=== PATIENT | female | born 1990 | race Caucasian/White ===

== ENCOUNTER 2016-07-22 08:26 | Inpatient (IN) | payer BC ==
[2016-07-22] VITALS (8 sets, daily range): BP systolic 116–143; BP diastolic 66–78
[~2016-07-22] VITALS: Ht 175.3 cm; Wt 86.2 kg
[~2016-07-22 08:26] MED LIST: CEFOXITIN 2GM IVPB FOR OMNI 100 ML IV PRN; FENTANYL PF 100 MCG/2 ML VIAL. IV PRN; HYDR-2666 PO; IV RINGERS,LACTATED 1000ML 1,000 ML IV SCH; LIDOCAINE 1% 1 ML SYRINGE. ID PRN; MORPHINE SULFATE 2 MG/ML DISP.SYRIN. IV PRN; ONDANSETRON PF 4 MG/2 ML VIAL. IV PRN; PREN1TAB58 PO; PROM6.25 PO
[2016-07-22 09:20] LABS: BASO # 0.1 x10^3/uL (0.0-0.2); BASO % 1 % (0-3); EOS % 3 % (0-3); HEMATOCRIT 39.2 % (36.0-47.0); HEMOGLOBIN 13.1 g/dL (12.0-15.5); LYMPH # 2.8 x10^3/uL (1.0-4.8); LYMPH % 31 % (24-48); MEAN CORPUSCULAR HEMOGLOBIN 29 pg (25-35); MEAN CORPUSCULAR HGB CONC 33 g/dL (31-37); MEAN CORPUSCULAR VOLUME 88 fL (79-100); MONO % 7 % (0-9); NEUT % 59 % (31-73); PLATELET COUNT 243 x10^3/uL (140-400); RED BLOOD COUNT 4.45 x10^6/uL (3.50-5.40); WHITE BLOOD COUNT 9.1 x10^3/uL (4.0-11.0)
[2016-07-22 09:23] LABS: CREATININE 0.9 mg/dL (0.6-1.0); GFR 74.6; POTASSIUM 3.6 mmol/L (3.5-5.1)
--- NOTE | 2016-07-22 10:16 | PDOC ---
SURGICAL PROGRESS NOTE Subjective 26 yo F with severe gastroparesis TO OR for total gastrectomy R/B/A /d pt and pt's family Vital Signs Vital Signs Date Time Temp Pulse Resp B/P Pulse Ox O2 Delivery O2 Flow Rate FiO2 07/22/16 08:51 98.8 72 18 114/66 99 Room Air 98.8 Labs Laboratory Tests Test 07/22/16 09:05 White Blood Count 9.1x10^3/uL (4.0-11.0) Red Blood Count 4.45x10^6/uL (3.50-5.40) Hemoglobin 13.1g/dL (12.0-15.5) Hematocrit 39.2% (36.0-47.0) Mean Corpuscular Volume 88fL (79-100) Mean Corpuscular Hemoglobin 29pg (25-35) Mean Corpuscular Hemoglobin Concent 33g/dL (31-37) Red Cell Distribution Width 13.0% (11.5-14.5) Platelet Count 243x10^3/uL (140-400) Neutrophils (%) (Auto) 59% (31-73) Lymphocytes (%) (Auto) 31% (24-48) Monocytes (%) (Auto) 7% (0-9) Eosinophils (%) (Auto) 3% (0-3) Basophils (%) (Auto) 1% (0-3) Neutrophils # (Auto) 5.3x10^3uL (1.8-7.7) Lymphocytes # (Auto) 2.8x10^3/uL (1.0-4.8) Monocytes # (Auto) 0.6x10^3/uL (0.0-1.1) Eosinophils # (Auto) 0.3x10^3/uL (0.0-0.7) Basophils # (Auto) 0.1x10^3/uL (0.0-0.2) Sodium Level 144mmol/L (136-145) Potassium Level 3.6mmol/L (3.5-5.1) Chloride Level 108mmol/L (98-107) Carbon Dioxide Level 25mmol/L (21-32) Anion Gap 11 (6-14) Blood Urea Nitrogen 10mg/dL (7-20) Creatinine 0.9mg/dL (0.6-1.0) Estimated GFR (Cockcroft-Gault) 74.6 Glucose Level 86mg/dL (70-99) Calcium Level 9.0mg/dL (8.5-10.1) Laboratory Tests Test 07/22/16 09:05 White Blood Count 9.1x10^3/uL (4.0-11.0) Red Blood Count 4.45x10^6/uL (3.50-5.40) Hemoglobin 13.1g/dL (12.0-15.5) Hematocrit 39.2% (36.0-47.0) Mean Corpuscular Volume 88fL (79-100) Mean Corpuscular Hemoglobin 29pg (25-35) Mean Corpuscular Hemoglobin Concent 33g/dL (31-37) Red Cell Distribution Width 13.0% (11.5-14.5) Platelet Count 243x10^3/uL (140-400) Neutrophils (%) (Auto) 59% (31-73) Lymphocytes (%) (Auto) 31% (24-48) Monocytes (%) (Auto) 7% (0-9) Eosinophils (%) (Auto) 3% (0-3) Basophils (%) (Auto) 1% (0-3) Neutrophils # (Auto) 5.3x10^3uL (1.8-7.7) Lymphocytes # (Auto) 2.8x10^3/uL (1.0-4.8) Monocytes # (Auto) 0.6x10^3/uL (0.0-1.1) Eosinophils # (Auto) 0.3x10^3/uL (0.0-0.7) Basophils # (Auto) 0.1x10^3/uL (0.0-0.2) Sodium Level 144mmol/L (136-145) Potassium Level 3.6mmol/L (3.5-5.1) Chloride Level 108mmol/L (98-107) Carbon Dioxide Level 25mmol/L (21-32) Anion Gap 11 (6-14) Blood Urea Nitrogen 10mg/dL (7-20) Creatinine 0.9mg/dL (0.6-1.0) Estimated GFR (Cockcroft-Gault) 74.6 Glucose Level 86mg/dL (70-99) Calcium Level 9.0mg/dL (8.5-10.1) GAIL BURT MD Jul 22, 2016 10:16
[2016-07-22 10:29] LABS: NEG OBC UR NEG; POS OBC UR POS
[2016-07-22] MEDS ORDERED: ROCURONIUM 50 MG/5 ML VIAL. ONE ×2 (10:49→12:41)
[2016-07-22] MEDS ORDERED: SUCCINYLCHOLINE 200 MG/10 ML VIAL. ONE (10:49)
[2016-07-22] MEDS ORDERED: FENTANYL PF 100 MCG/2 ML VIAL. ONE ×2 (10:49→14:02)
[2016-07-22] MEDS ORDERED: MIDAZOLAM HCL 2 MG/2 ML VIAL. ONE (10:49)
[2016-07-22] MEDS ORDERED: FAMOTIDINE 20 MG/2 ML VIAL ONE (10:50)
[2016-07-22] MEDS ORDERED: ONDANSETRON PF 4 MG/2 ML VIAL. ONE (10:50)
[2016-07-22] MEDS ORDERED: LIDOCAINE 2% 100 MG/5 ML DISP.SYRIN. ONE (10:50)
[2016-07-22] MEDS ORDERED: DEXAMETHASONE SOD PHOS 20 MG/5 ML VIAL. ONE (10:50)
[2016-07-22] MEDS ORDERED: PROPOFOL 20 ML IV ONE ×2 (10:50→13:24)
[2016-07-22] MEDS ORDERED: MORPHINE SULFATE 10 MG/ML VIAL. ONE (11:26)
[2016-07-22] MEDS ORDERED: SEVOFLURANE > 120 MINUTES. IH ONE (12:42)
[2016-07-22] MEDS ORDERED: GLYCOPYRROLATE 1 MG/5 ML VIAL. ONE (13:14)
[2016-07-22] MEDS ORDERED: NEOSTIGMINE METHYLSULFATE 5 MG/5 ML SYRINGE. ONE (13:14)
[2016-07-22] MEDS: IV NORMAL SALINE 1000ML BAG 1,000 ML IV SCH (14:02)
--- NOTE | 2016-07-22 14:13 | PDOC ---
BRIEF OPERATIVE NOTE Pre-Op Diagnosis gastroparesis Post-Op Diagnosis same Procedure Performed total gastrectomy Surgeon Mohit Alonso Anesthesia Type: General Blood Loss 100 IV Fluid 1600 Specimens Obtained stomach Findings large stomach Complications none Additional Remarks [id number] GAIL BURT MD Jul 22, 2016 14:13
[2016-07-22] MEDS ORDERED: 0.9 % SODIUM CHLORIDE 10 ML DISP.SYRIN. IV PRN (14:15)
[2016-07-22] MEDS ORDERED: NALOXONE 0.4 MG/ML VIAL. IV PRN (14:15)
[2016-07-22] MEDS: PROCHLORPERAZINE 10 MG/2 ML VIAL. IV PRN ×2 (14:20→15:00)
[2016-07-22] MEDS: HYDROMORPHONE 2 MG/ML VIAL. IV PRN ×4 (14:21→15:48)
[2016-07-22] MEDS: HYDROMORPHONE STANDARD PCA 30 ML IV PRN (14:35)
[2016-07-22] MEDS: IV RINGERS,LACTATED 1000ML 1,000 ML IV SCH (14:36)
[2016-07-22] MEDS: FENTANYL PF 100 MCG/2 ML VIAL. IV PRN ×2 (14:42→15:24)
[2016-07-22] MEDS ORDERED: ACETAMINOPHEN INTRAVENOUS 100 ML IV ONE (15:15)
--- NOTE | 2016-07-22 15:49 | RAD ---
Portable abdomen, 07/22/2016: History: Postop gastrectomy An NG tube extends into the body of the stomach. Tubing overlying the mid abdomen is presumably a surgical drain. Surgical sutures and clips overlie the mid and upper abdomen. The lower pelvis was not completely included on this exam. There is no evidence of a retained surgical instrument, needle or radiopaque sponge on this image.
--- NOTE | 2016-07-22 17:00 | OP ---
DATE OF SURGERY: 07/22/2016 REFERRING PHYSICIANS: Dr. Deana Jose. Thank you for the consult. PREOPERATIVE DIAGNOSIS: Severe gastroparesis. POSTOPERATIVE DIAGNOSIS: Severe gastroparesis. PROCEDURE: Total gastrectomy with Yoni-en-Y reconstruction, removal of previous gastrostomy tube, lysis of adhesions, incisional hernia repair. SURGEON: Raj Rueda M.D. FASHION PHOTOGRAPHER: Boy Alonso M.D. ESTIMATED BLOOD LOSS: 100 mL. FLUIDS: 1600 mL. COMPLICATIONS: None. FINDINGS: Very large stomach. INDICATIONS: A 26-year-old female who has had previous history of gastroparesis as well as a total colectomy for colonic atony and she has been on gastrostomy tube and jejunostomy tube. She has tolerated J tube feedings well, but is not able to take any p.o. intake. Subsequently, it was felt patient best be served by a total gastrectomy with Yoni-en-Y reconstruction. The patient and patient's family were informed of the risks, benefits, alternatives of procedure, risks including but not limited to bleeding, infection, damage to surrounding structures, risk of anesthesia, risk of anastomotic leak, risk of anesthesia, certainly the possibility that this will not improve her symptoms. The patient and patient's family appeared to understand and their insightful questions were answered and they agreed to proceed. DESCRIPTION OF PROCEDURE: After obtaining informed consent, the patient was taken to the operating room, induced under general endotracheal anesthetic. The patient was prepped and draped in usual fashion of the anterior abdominal wall, upper midline incision was reopened using electrocautery. Subcutaneous tissue was divided using electrocautery. There were several small hernias in the fascial area here. These were reopened and closed at the end of the procedure for repair. The abdominal cavity was explored. The stomach was noted to be very enlarged. 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 Her jejunostomy tube is in the proximal small intestine in the right upper quadrant and was maintained in place remaining small bowel had some adhesions in place. These were taken down using sharp dissection without injuring the underlying bowel. The small bowel was followed down to the previous ileocolic anastomosis, which appeared to be intact and patent and looked good. The duodenum was divided just proximal to the pylorus using a contour stapler. The duodenal stump was oversewn using continuous 3-0 Vicryl stitch. The stomach and omentum were then taken off the retrogastric structures using electrocautery dissection without injuring the underlying pancreas, short gastric vessels were taken using Impact LigaSure. This dissection continued well up near the GE junction. The left gastric artery was maintained and the stomach was divided just distal to this leaving a small rim of stomach for the anastomosis. The gastrostomy tube was also removed and discarded. The stomach was sent to pathology for evaluation. A Yoni-en-Y was created using general MADELEINE stapler. The proximal end of the distal portion of the jejunum was brought up to the stomach and gastrojejunostomy was created using an outside layer multiple interrupted 3-0 Vicryl stitches in an end-to-side layer, continuous 3-0 PDS. The NG tube was placed across this. Air was blown across the anastomosis without evidence of any air leak or air bubbles. The anastomosis was noted to be patent and no tension, completely viable without evidence for leakage. The jejunojejunostomy was then created distally using gentle load MADELEINE stapler. The end of this was sealed off using a 3-0 PDS in continuous fashion and 3-0 Vicryl. This anastomosis noted to be patent under no tension, completely viable. The crotch of this anastomosis was reinforced using 3-0 Vicryl stitches. Mesentery defect was reapproximated using 3-0 chromic. The abdominal cavity was copiously irrigated with normal saline solution. There was no evidence of bleeding or other pathology at the time of closure. The VIN drain was brought in through the left upper quadrant and placed near the gastrojejunostomy. The previous gastrostomy site was excised using electrocautery. This appeared to have significant dimpling effect and was loosely reapproximated using 3-0 nylon in two interrupted vertical mattress stitches. The fascia was reapproximated in midline using 2 looped 0 PDS stitches in continuous fashion and a Greg drain was placed in the subcutaneous tissues. Subcutaneous tissues reapproximated with 3-0 Vicryl. Skin incisions were approximated with 4-0 Monocryl in subcuticular fashion and a Greg drain was secured in place using a 3-0 nylon stitch. The patient tolerated the procedure well and was discharged to recovery room in stable condition. All counts correct. There were no immediate complications. RAJ RUEDA MD DR: BRADLEY/beto JOB#: [id number] / [id number] DEANA Moreno MD
[2016-07-23] MEDS: IV RINGERS,LACTATED 1000ML 1,000 ML IV SCH ×3 (00:17→16:09)
[2016-07-23] MEDS: HYDROMORPHONE STANDARD PCA 30 ML IV PRN ×2 (02:32→16:18)
[2016-07-23 03:10] VITALS: BP 118/74
[2016-07-23 05:44] LABS: BASO % 0 % (0-3); EOS % 2 % (0-3); HEMATOCRIT 37.4 % (36.0-47.0); HEMOGLOBIN 12.3 g/dL (12.0-15.5); LYMPH % 6 % (24-48); MEAN CORPUSCULAR HEMOGLOBIN 29 pg (25-35); MEAN CORPUSCULAR HGB CONC 33 g/dL (31-37); MEAN CORPUSCULAR VOLUME 89 fL (79-100); MONO % 6 % (0-9); NEUT % 86 % (31-73); PLATELET COUNT 217 x10^3/uL (140-400); RED CELL DISTRIBUTION WIDTH 13.3 % (11.5-14.5); WHITE BLOOD COUNT 15.9 x10^3/uL (4.0-11.0)
[2016-07-23 07:00] VITALS: BP 105/56
[2016-07-23 08:11] LABS: % EOS 4 % (0-5)
[2016-07-23 08:14] LABS: PLT ESTIMATE ADEQUATE (ADEQUATE)
[2016-07-23] MEDS: ONDANSETRON PF 4 MG/2 ML VIAL. IV PRN ×3 (09:24→21:26)
[2016-07-23] MEDS: ENOXAPARIN 40 MG/0.4 ML DISP.SYRIN. SQ SCH (09:25)
[2016-07-23 11:00] VITALS: BP 106/48
--- NOTE | 2016-07-23 12:45 | PDOC ---
SURGICAL PROGRESS NOTE Subjective Pt with better pain control, somewhat "quesy" Vital Signs Vital Signs Date Time Temp Pulse Resp B/P Pulse Ox O2 Delivery O2 Flow Rate FiO2 07/23/16 11:00 97.3 71 16 106/48 96 Nasal Cannula 2.0 97.3 I&O Intake and Output 07/23/16 07:00 Intake Total 3231.5 ml Output Total 1200 ml Balance 2031.5 ml Intake Oral 0 ml IV Total 3231.5 ml Output Urine Total 880 ml Drainage Total 220 ml Estimated Blood Loss 100 ml # Voids 1 PATIENT HAS A WATSON: Yes General: Alert, Oriented X3, Cooperative, No acute distress Abdomen: Soft, Other (dressing c/d/i, VIN serosang) Labs Laboratory Tests Test 07/22/16 07:00 07/22/16 09:05 07/23/16 04:51 Urine Test Negative (NEG) White Blood Count 9.1x10^3/uL (4.0-11.0) 15.9x10^3/uL (4.0-11.0) Red Blood Count 4.45x10^6/uL (3.50-5.40) 4.20x10^6/uL (3.50-5.40) Hemoglobin 13.1g/dL (12.0-15.5) 12.3g/dL (12.0-15.5) Hematocrit 39.2% (36.0-47.0) 37.4% (36.0-47.0) Mean Corpuscular Volume 88fL (79-100) 89fL (79-100) Mean Corpuscular Hemoglobin 29pg (25-35) 29pg (25-35) Mean Corpuscular Hemoglobin Concent 33g/dL (31-37) 33g/dL (31-37) Red Cell Distribution Width 13.0% (11.5-14.5) 13.3% (11.5-14.5) Platelet Count 243x10^3/uL (140-400) 217x10^3/uL (140-400) Neutrophils (%) (Auto) 59% (31-73) 86% (31-73) Lymphocytes (%) (Auto) 31% (24-48) 6% (24-48) Monocytes (%) (Auto) 7% (0-9) 6% (0-9) Eosinophils (%) (Auto) 3% (0-3) 2% (0-3) Basophils (%) (Auto) 1% (0-3) 0% (0-3) Neutrophils # (Auto) 5.3x10^3uL (1.8-7.7) 13.6x10^3uL (1.8-7.7) Lymphocytes # (Auto) 2.8x10^3/uL (1.0-4.8) 1.0x10^3/uL (1.0-4.8) Monocytes # (Auto) 0.6x10^3/uL (0.0-1.1) 1.0x10^3/uL (0.0-1.1) Eosinophils # (Auto) 0.3x10^3/uL (0.0-0.7) 0.3x10^3/uL (0.0-0.7) Basophils # (Auto) 0.1x10^3/uL (0.0-0.2) 0.0x10^3/uL (0.0-0.2) Sodium Level 144mmol/L (136-145) Potassium Level 3.6mmol/L (3.5-5.1) Chloride Level 108mmol/L (98-107) Carbon Dioxide Level 25mmol/L (21-32) Anion Gap 11 (6-14) Blood Urea Nitrogen 10mg/dL (7-20) Creatinine 0.9mg/dL (0.6-1.0) Estimated GFR (Cockcroft-Gault) 74.6 Glucose Level 86mg/dL (70-99) Calcium Level 9.0mg/dL (8.5-10.1) Segmented Neutrophils % 76% (35-66) Band Neutrophils % 8% (0-9) Lymphocytes % 7% (24-48) Monocytes % 5% (0-10) Eosinophils % 4% (0-5) Platelet Estimate Adequate (ADEQUATE) Laboratory Tests Test 07/23/16 04:51 White Blood Count 15.9x10^3/uL (4.0-11.0) Red Blood Count 4.20x10^6/uL (3.50-5.40) Hemoglobin 12.3g/dL (12.0-15.5) Hematocrit 37.4% (36.0-47.0) Mean Corpuscular Volume 89fL (79-100) Mean Corpuscular Hemoglobin 29pg (25-35) Mean Corpuscular Hemoglobin Concent 33g/dL (31-37) Red Cell Distribution Width 13.3% (11.5-14.5) Platelet Count 217x10^3/uL (140-400) Neutrophils (%) (Auto) 86% (31-73) Lymphocytes (%) (Auto) 6% (24-48) Monocytes (%) (Auto) 6% (0-9) Eosinophils (%) (Auto) 2% (0-3) Basophils (%) (Auto) 0% (0-3) Neutrophils # (Auto) 13.6x10^3uL (1.8-7.7) Lymphocytes # (Auto) 1.0x10^3/uL (1.0-4.8) Monocytes # (Auto) 1.0x10^3/uL (0.0-1.1) Eosinophils # (Auto) 0.3x10^3/uL (0.0-0.7) Basophils # (Auto) 0.0x10^3/uL (0.0-0.2) Segmented Neutrophils % 76% (35-66) Band Neutrophils % 8% (0-9) Lymphocytes % 7% (24-48) Monocytes % 5% (0-10) Eosinophils % 4% (0-5) Platelet Estimate Adequate (ADEQUATE) Problem List Problems Medical Problems: (1) Gastroparesis Status: Acute Assessment/Plan s/p total gastrectomy cont pain control OOB possible tube feeds in AM Problems: GAIL BURT MD Jul 23, 2016 12:45
[2016-07-23] MEDS: IV NORMAL SALINE 1000ML BAG 1,000 ML IV SCH (14:02)
[2016-07-23 15:00] VITALS: BP 104/56
[2016-07-23 19:15] VITALS: BP 108/70
[2016-07-23 23:14] VITALS: BP 107/61
[2016-07-24 03:31] VITALS: BP 110/64
[2016-07-24] MEDS: ONDANSETRON PF 4 MG/2 ML VIAL. IV PRN (04:42)
[2016-07-24] MEDS: IV RINGERS,LACTATED 1000ML 1,000 ML IV SCH ×2 (06:20→16:40)
[2016-07-24] MEDS: HYDROMORPHONE STANDARD PCA 30 ML IV PRN (06:26)
[2016-07-24 07:00] VITALS: BP 115/67
[2016-07-24] MEDS: ENOXAPARIN 40 MG/0.4 ML DISP.SYRIN. SQ SCH (08:40)
--- NOTE | 2016-07-24 09:07 | PDOC ---
SURGICAL PROGRESS NOTE Subjective + nausea, no emesis pain managed Vital Signs Vital Signs Date Time Temp Pulse Resp B/P Pulse Ox O2 Delivery O2 Flow Rate FiO2 07/24/16 07:40 Nasal Cannula 2.0 07/24/16 07:00 98.0 65 18 115/67 94 98.0 I&O Intake and Output 07/24/16 07:00 Intake Total 2380 ml Output Total 545 ml Balance 1835 ml Intake Oral 0 ml IV Total 2380 ml Output Urine Total 300 ml Drainage Total 245 ml General: Alert, Oriented X3, Cooperative, No acute distress HEENT: Other (NG present, scant drainage ) Abdomen: Soft, Other (incisional TTP, dressing dry, j tube in place, tutu serosang ) Labs Laboratory Tests Test 07/22/16 09:05 07/23/16 04:51 White Blood Count 9.1x10^3/uL (4.0-11.0) 15.9x10^3/uL (4.0-11.0) Red Blood Count 4.45x10^6/uL (3.50-5.40) 4.20x10^6/uL (3.50-5.40) Hemoglobin 13.1g/dL (12.0-15.5) 12.3g/dL (12.0-15.5) Hematocrit 39.2% (36.0-47.0) 37.4% (36.0-47.0) Mean Corpuscular Volume 88fL (79-100) 89fL (79-100) Mean Corpuscular Hemoglobin 29pg (25-35) 29pg (25-35) Mean Corpuscular Hemoglobin Concent 33g/dL (31-37) 33g/dL (31-37) Red Cell Distribution Width 13.0% (11.5-14.5) 13.3% (11.5-14.5) Platelet Count 243x10^3/uL (140-400) 217x10^3/uL (140-400) Neutrophils (%) (Auto) 59% (31-73) 86% (31-73) Lymphocytes (%) (Auto) 31% (24-48) 6% (24-48) Monocytes (%) (Auto) 7% (0-9) 6% (0-9) Eosinophils (%) (Auto) 3% (0-3) 2% (0-3) Basophils (%) (Auto) 1% (0-3) 0% (0-3) Neutrophils # (Auto) 5.3x10^3uL (1.8-7.7) 13.6x10^3uL (1.8-7.7) Lymphocytes # (Auto) 2.8x10^3/uL (1.0-4.8) 1.0x10^3/uL (1.0-4.8) Monocytes # (Auto) 0.6x10^3/uL (0.0-1.1) 1.0x10^3/uL (0.0-1.1) Eosinophils # (Auto) 0.3x10^3/uL (0.0-0.7) 0.3x10^3/uL (0.0-0.7) Basophils # (Auto) 0.1x10^3/uL (0.0-0.2) 0.0x10^3/uL (0.0-0.2) Sodium Level 144mmol/L (136-145) Potassium Level 3.6mmol/L (3.5-5.1) Chloride Level 108mmol/L (98-107) Carbon Dioxide Level 25mmol/L (21-32) Anion Gap 11 (6-14) Blood Urea Nitrogen 10mg/dL (7-20) Creatinine 0.9mg/dL (0.6-1.0) Estimated GFR (Cockcroft-Gault) 74.6 Glucose Level 86mg/dL (70-99) Calcium Level 9.0mg/dL (8.5-10.1) Segmented Neutrophils % 76% (35-66) Band Neutrophils % 8% (0-9) Lymphocytes % 7% (24-48) Monocytes % 5% (0-10) Eosinophils % 4% (0-5) Platelet Estimate Adequate (ADEQUATE) Problem List Problems Medical Problems: (1) Gastroparesis Status: Acute Assessment/Plan s/p total gastrectomy DC lea continue NG trophic feeds possible in AM Problems: YENIFER STEWART APRN Jul 24, 2016 09:06
[2016-07-24 11:00] VITALS: BP 124/65
[2016-07-24] MEDS: IV NORMAL SALINE 1000ML BAG 1,000 ML IV SCH (14:02)
[2016-07-24 15:00] VITALS: BP 123/65
--- NOTE | 2016-07-24 17:41 | PATHOLOGY ---
PATHOLOGY REPORT * * * * * * * * FINAL DIAGNOSIS: Stomach and attached portion of duodenum and omentum, gastrectomy: - Congestion and focal mild chronic inflammation of gastric mucosa. - Gastroparesis (clinical). - Focal submucosal scarring of stomach. - Sixteen perigastric lymph nodes negative for tumor. - Omentum negative for tumor. (JPM:; d/t: 07/24/16) REPORT ELECTRONICALLY SIGNED BY: Aram Mondragon M.D. DATE/TIME: 07/24/2016 17:41 * * * * * * * * GROSS PATHOLOGY: The specimen is received in formalin, labeled "[id number], Maty and stomach." Received is 21.0 x 8.3 x 3.5 slightly curved, unoriented, and previously opened portion of stomach with attached omentum measuring 23.0 x 20.3 x 1.8 cm. The surface displays 2 stapled margins, which grossly appear viable. Centrally located within the specimen is a 3.5 x 2.0 cm circular and transmural defect, which exposes underlying mucosa. The defect is located 8.3 cm from the nearest stapled margin. The serosa surrounding the defect is inked blue. The remaining gastric serosa is pink-westbrook and wrinkled. The specimen was previously opened to reveal westbrook-brown mucosa with the usual rugal folds. No mucosal masses or lesions are grossly identified. The wall is thickened and measures up to 0.7 cm. Examination o f the perigastric fat reveals multiple pink-westbrook lymph nodes ranging from 0.3-1.2 cm in greatest dimension. Sectioning of the omentum reveals a grossly unremarkable cut surface. [employer] sections are submitted as follows: A1 margin closest to serosal defect A2 opposing margin, en face A3 sections between margin (closer to defect) and mid portion of stomach A4 sections from mid portion of stomach to include serosal defect A5 sections between (opposing) margin and mid portion of stomach A6 omentum A7-A8 multiple intact and possible lymph nodes (TTL; 07/23/2016) INITIAL CPT CODE(S): A; 94656 Professional services performed by [facility] at [facility] [address] [place] [id number] Technical services performed by [facility] at [address] [place] [address], [address], [place] [address]. SPECIMEN(S) RECEIVED: A.Stomach CLINICAL HISTORY: Gastroparesis PATIENT: MATY MCMULLEN /AGE: 106/06/1990 (Age: 26) PATIENT #: [id number] ALT CASE #: SPECIMEN COLLECTION DATE: 07/22/2016 SPECIMEN RECEIVED DATE: 07/22/2016 [facility] - [address] [place] [address] - PHONE: [phone] * * * END OF REPORT * * *
[2016-07-24 19:00] VITALS: BP 144/52
[2016-07-24 23:00] VITALS: BP 119/78
[2016-07-25] MEDS: IV RINGERS,LACTATED 1000ML 1,000 ML IV SCH ×3 (01:49→22:08)
[2016-07-25 03:00] VITALS: BP 119/60
[2016-07-25 07:47] VITALS: BP 129/75
[2016-07-25] MEDS: ENOXAPARIN 40 MG/0.4 ML DISP.SYRIN. SQ SCH (08:18)
--- NOTE | 2016-07-25 09:05 | PDOC ---
SURGICAL PROGRESS NOTE Subjective no nausea or emesis pain managed some flatus Vital Signs Vital Signs Date Time Temp Pulse Resp B/P Pulse Ox O2 Delivery O2 Flow Rate FiO2 07/25/16 07:47 98.6 53 16 129/75 95 Room Air 98.6 07/25/16 07:15 2.0 I&O Intake and Output 07/25/16 07:00 Intake Total 2322 ml Output Total 411 ml Balance 1911 ml Intake Oral 0 ml IV Total 1022 ml Other 1300 ml Output Urine Total 1 ml Gastric Drainage Total 250 ml Drainage Total 160 ml # Voids 3 PATIENT HAS A WATSON: No General: Alert, Oriented X3, Cooperative, No acute distress Abdomen: Soft, Other (ND, dressing dry, VIN serosang ) Problem List Problems Medical Problems: (1) Gastroparesis Status: Acute Assessment/Plan s/p total gastrectomy start trophic tube feeds, consulted nutrition Problems: YENIFER STEWART APRN Jul 25, 2016 09:05
[2016-07-25 10:41] VITALS: BP 124/71
[2016-07-25] MEDS: IV NORMAL SALINE 1000ML BAG 1,000 ML IV SCH (14:02)
[2016-07-25 15:35] VITALS: BP 126/72
[2016-07-25] MEDS: HYDROMORPHONE STANDARD PCA 30 ML IV PRN (15:54)
[2016-07-25 19:25] VITALS: BP 125/71
[2016-07-25 23:28] VITALS: BP 136/76
[2016-07-26 03:25] VITALS: BP 113/63
[2016-07-26 05:34] LABS: CREATININE 0.6 mg/dL (0.6-1.0)
[2016-07-26 07:00] VITALS: BP 116/75
[2016-07-26] MEDS: IV RINGERS,LACTATED 1000ML 1,000 ML IV SCH ×2 (08:02→18:02)
[2016-07-26] MEDS: ENOXAPARIN 40 MG/0.4 ML DISP.SYRIN. SQ SCH (09:00)
[2016-07-26 11:00] VITALS: BP 120/76
--- NOTE | 2016-07-26 12:45 | PDOC ---
Provider Note Provider Note no concerns or complaints today gwendolyn tube feeds afeb vss appears well abd soft nd nt inc without erythema. vianey with drainage as expected drain and j tube unremarkable a/p cont tube feeds. no new recs. DAMION MCCANN MD Jul 26, 2016 12:44
[2016-07-26] MEDS: IV NORMAL SALINE 1000ML BAG 1,000 ML IV SCH (14:02)
[2016-07-26 15:00] VITALS: BP 125/75
[2016-07-26 19:40] VITALS: BP 121/71
[2016-07-26 23:53] VITALS: BP 133/68
[2016-07-27 03:20] VITALS: BP 126/75
[2016-07-27] MEDS: IV RINGERS,LACTATED 1000ML 1,000 ML IV SCH ×2 (04:02→14:11)
[2016-07-27] MEDS: HYDROMORPHONE STANDARD PCA 30 ML IV PRN (04:06)
[2016-07-27 07:00] VITALS: BP 133/69
[2016-07-27] MEDS: ENOXAPARIN 40 MG/0.4 ML DISP.SYRIN. SQ SCH (08:50)
[2016-07-27 11:00] VITALS: BP 124/68
[2016-07-27] MEDS: IV NORMAL SALINE 1000ML BAG 1,000 ML IV SCH (14:02)
[2016-07-27 15:00] VITALS: BP 133/76
--- NOTE | 2016-07-27 16:14 | PDOC ---
Provider Note Provider Note feeling very well. 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 start lortab elixir. poss home tomorrow. dc ivf. she says she is drinking alot of fluid. DAMION MCCANN MD Jul 27, 2016 16:14
[2016-07-27] MEDS ORDERED: HYDROCODONE/APAP 7.5/325MG ORAL 15 ML SOLUTION. PO PRN (16:15)
[2016-07-27] MEDS ORDERED: HYDROMORPHONE 2 MG/ML VIAL. IVP PRN (16:15)
[2016-07-27 19:15] VITALS: BP 127/65
[2016-07-27] MEDS ORDERED: HYDROCODONE/APAP 7.5/325MG ORAL 15 ML SOLUTION. FT PRN (21:44)
[2016-07-27] MEDS: HYDROCODONE/APAP 7.5/325MG ORAL 15 ML SOLUTION. FT PRN (21:56)
[2016-07-28] MEDS: HYDROCODONE/APAP 7.5/325MG ORAL 15 ML SOLUTION. FT PRN ×4 (02:47→12:48)
[2016-07-28 02:53] VITALS: BP 121/61
[2016-07-28 07:00] VITALS: BP 122/66
[2016-07-28] MEDS: ENOXAPARIN 40 MG/0.4 ML DISP.SYRIN. SQ SCH (08:22)
[2016-07-28] MEDS ORDERED: IOHEXOL 300 MG/ML 50 ML VIAL. IJ ONE ×2 (08:30→11:00)
[2016-07-28] MEDS ORDERED: CONTRAST GIVEN MC PRN (08:30)
--- NOTE | 2016-07-28 09:16 | RAD ---
AP abdomen 07/28/2016 Clinical history: Recent jejunostomy tube placement. An AP portable supine digital radiograph of the abdomen was obtained. This was performed after the technologist injected 20 cc of Omnipaque 300 into the patient's jejunostomy tube. Comparison study is dated 07/22/2016. The NG tube has been removed. Age range catheter is coiled overlying the left upper quadrant of the abdomen. Multiple surgical clips are seen within the left upper quadrant of the abdomen. Surgical clips are seen within the right upper quadrant of the abdomen consistent with a cholecystectomy. The patient's jejunostomy tube is within the proximal jejunum within the right upper quadrant of the abdomen. No extravasation of contrast is seen. The abdominal bowel gas pattern is nonobstructive. The osseous structures are unchanged. Impression: The tip of the jejunostomy tube is within the proximal jejunum. No extravasation of contrast is seen.
--- NOTE | 2016-07-28 09:34 | PDOC ---
SURGICAL PROGRESS NOTE Subjective tolerating clears j tube leaking pain managed Vital Signs Vital Signs Date Time Temp Pulse Resp B/P Pulse Ox O2 Delivery O2 Flow Rate FiO2 07/28/16 08:27 18 93 Room Air 2.0 07/28/16 07:00 98.1 64 122/66 98.1 I&O Intake and Output 07/28/16 07:00 Intake Total 1789 ml Output Total 295 ml Balance 1494 ml Intake Oral 1050 ml Tube Feeding 739 ml Drainage Total 295 ml # Voids 5 # Bowel Movements 1 General: Alert, Oriented X3, Cooperative, No acute distress Abdomen: Soft, Other (ND, incision c/d/i, no erythema, j tube(pulled out from skin), VIN serous ) Problem List Problems Medical Problems: (1) Gastroparesis Status: Acute Assessment/Plan s/p total gastrectomy will have IR attempt to replace j tube (if unable will leave out) remove vianey drain prior to discharge possible home after IR evals advance diet Problems: YENIFER STEWART APRN Jul 28, 2016 09:34
[2016-07-28] MEDS ORDERED: HYDR15SO4 FT (09:37)
[2016-07-28] MEDS ORDERED: MIDAZOLAM HCL 2 MG/2 ML VIAL. ONE (10:34)
[2016-07-28] MEDS ORDERED: FENTANYL PF 100 MCG/2 ML VIAL. ONE ×2 (10:34→10:58)
[2016-07-28 10:44] VITALS: BP 118/67
[2016-07-28] MEDS ORDERED: FENTANYL PF 100 MCG/2 ML VIAL. IV ONE (11:00)
[2016-07-28] MEDS ORDERED: MIDAZOLAM HCL 2 MG/2 ML VIAL. IV ONE (11:00)
[2016-07-28] MEDS ORDERED: LIDOCAINE 1% / SOD BICARB 8.4% 20 ML VIAL. IJ ONE (11:00)
--- NOTE | 2016-07-28 11:25 | PDOC ---
MODERATE SEDATION ASSESSMENT RISKS/ALTERNATIVES Risks/Alternatives Risks and alternatives of this type of sedation and procedure discussed with: RISK/ALTERNATIVES: Patient H & P ON CHART H & P H & P on chart and reviewed for co-morbid conditions and appropriate labs. H&P ON CHART: Yes STATUS PREG STATUS ASSESSED: Yes MEDS/ALLERGIES REVIEWED Meds/Allergies Reviewed Medications and Allergies including time and route of recently administered narcotics and sedatives. MEDS/ALLERGIES REVIEWED: Yes ASA RATING ASA RATING: II AIRWAY ASSESSMENT Airway Assessment Airway patency, oral function limitations, presence of caps, crowns, dentures, partials, and ability to extend neck assessed. AIRWAY ASSESSMENT: Yes MALLAMPATI SCORE MALLAMPATI SCORE: II PRE-SEDATION ASSESSMENT PRE-SEDATION ASSESSMENT: Yes HERNAN SINGLETARY MD Jul 28, 2016 11:25
--- NOTE | 2016-07-28 11:28 | PDOC ---
Exam Tire Curer Tire Curer [place] Tobacco Shaker Tobacco Shaker Clyde Song Pre-Procedure Diagnosis Pre-Procedure Diagnosis 26 YO female with gastroparesis, s/p total gastrectomy. Leaking, clogged, partially dislodged J-tube Post-Procedure Diagnosis Post-Procedure Diagnosis Same Procedure Performed Procedure Performed Fluoro guided J-tube replacement Type of Anesthesia Type of Anesthesia Mod sedation Estimated Blood Loss EBL: Trace Specimens Specimans 16F J-tube removed and discarded Drain/Tubes Drains/Tubes New 18F JAVI J-tube inserted Condition of Patient Condition of Patient Stable. No apparent complication. Disposition Disposition From IR return to [facility]. F/u with Dr Rueda. OK to use new J-tube. Full report to follow. HERNAN SINGLETARY MD Jul 28, 2016 11:28
--- NOTE | 2016-07-28 16:49 | RAD ---
Fluoroscopy guided jejunostomy tube replacement Indication: 26-year-old female with gastroparesis, status post total gastrectomy. Her indwelling jejunostomy tube is leaking, it is incompletely clogged, and is partially dislodged. Fluoroscopy guided J-tube tube replacement has been requested by general surgery Fluoroscopy time: 4.6 minutes. A total of 4 fluoroscopic spot films were obtained. Kerma-area Product: [id number] Contrast material: 26 cc Omnipaque 300 Anesthesia: 21 minutes moderate sedation was provided utilizing a total of 3 mg Versed and 150 mcg fentanyl, IV. The patient was appropriately monitored by a qualified independent observer throughout the time of moderate sedation. Procedure: Informed consent was obtained from the patient. She was placed supine on the angiography table. Right upper quadrant of abdomen was prepped and draped in the usual sterile fashion. Moderate sedation was provided with IV Versed and fentanyl. A small amount of Omnipaque 300 was slowly injected through the partially clogged, partially dislodged indwelling 16 Turkish jejunostomy tube, under fluoroscopic guidance. There was resulting contrast opacification of jejunum, documenting that the J-tube tip had withdrawn to lie barely within jejunal lumen. Under fluoroscopic guidance, a Roadrunner guidewire was advanced through the J-tube into jejunum. Retention cuff of the indwelling J-tube was deflated, and the jejunostomy tube was exchanged over the Roadrunner wire for a 5 Turkish Berenstein catheter, which was advanced deeply into jejunum. Satisfactory intraluminal position of the Berenstein catheter was confirmed with contrast injection. The Berenstein catheter was then easily exchanged over the Roadrunner wire for a new 18 Turkish JAVI jejunostomy tube. Satisfactory intraluminal position of the new J-tube was confirmed with contrast injection and fluoroscopic spot images. Retention balloon of the new J-tube was then inflated utilizing 5 cc of sterile water. A sterile dressing was applied. Patient tolerated the procedure well without apparent complication. Impression: Successful, uneventful fluoroscopy guided jejunostomy tube replacement, as described.
--- NOTE | 2016-08-04 10:06 | DS ---
DATE OF DISCHARGE: 07/28/2016 DIAGNOSIS: Severe gastroparesis. PROCEDURE: Total gastrectomy with Yoni-en-Y reconstruction. REFERRING PHYSICIANS: Dr. Deana Jose and Dr. Brian Dubon. Thank you for the consult. HOSPITAL COURSE: This is a very pleasant 26-year-old female with severe gastroparesis. She was admitted and underwent a total gastrectomy for severe gastroparesis. Postoperatively, she did well and gradually was weaned off pain medicine and resumed her tube feedings via her previously placed J-tube. Of note, she did have some issues with dislodgement of the J-tube, but Dr. Calle from Interventional Radiology was able to replace this without difficulty. Subsequently, on 07/28/2016, it was felt the patient was stable for discharge home. She is to follow up with me in 2 weeks. DIET: As tolerated. ACTIVITY: As tolerated, but to avoid heavy lifting. DISCHARGE INSTRUCTIONS: She is to resume her tube feeds. She was given prescriptions for pain medicines and to resume her previous medications. Thank you for allowing participation in the care of this pleasant patient. GIAL BURT MD DR: BRADLEY/beto JOB#: [id number] / [id number] DEANA Moreno MD [facility]
== END 2016-07-28 13:10 | disposition home or self-care (01) | DRG 327 ==
LOC: OPSVCIP 08:26 → 4 NORTH 16:02
PROVIDERS: ADMIT Surgery; ATTEND Surgery
PROC: 0DP64UZ Removal of Feeding Device from Stomach, Percutaneous Endoscopic Approach (ICD-10-PCS; 2016-07-22)
PROC: 0D160ZA Bypass Stomach to Jejunum, Open Approach (ICD-10-PCS; 2016-07-22)
PROC: 0WQF0ZZ Repair Abdominal Wall, Open Approach (ICD-10-PCS; 2016-07-22)
PROC: 0DT60ZZ Resection of Stomach, Open Approach (ICD-10-PCS; principal; 2016-07-22 10:15)
PROC: 0DHA3UZ Insertion of Feeding Device into Jejunum, Percutaneous Approach (ICD-10-PCS; 2016-07-28)
PROC: 0D2DXUZ Change Feeding Device in Lower Intestinal Tract, External Approach (ICD-10-PCS; 2016-07-28)
DX: K31.84 Gastroparesis (principal); K94.13 Enterostomy malfunction; F17.200 Nicotine dependence, unspecified, uncomplicated; Z79.899 Other long term (current) drug therapy; Z90.49 Acquired absence of other specified parts of digestive tract; Z80.0 Family history of malignant neoplasm of digestive organs; Z83.2 Family history of diseases of the blood and blood-forming organs and certain disorders involving the immune mechanism; Z83.3 Family history of diabetes mellitus; Z82.49 Family history of ischemic heart disease and other diseases of the circulatory system; Z82.3 Family history of stroke; Y83.8 Other surgical procedures as the cause of abnormal reaction of the patient, or of later complication, without mention of misadventure at the time of the procedure; Z88.5 Allergy status to narcotic agent
CPT/HCPCS: 36415; 49451; 74000; 80048; 81025; 82565; 84520; 85007; 85027; 85049; 88307; C1769; J0131; J0330; J0694; J0780; J1100; J1170; J1650; J2250; J2270; J2405; J2704; J2710; J3010; J3490; J7120; Q9967; S0028

== ENCOUNTER 2017-01-30 08:28 | Outpatient (CLI) | payer BC ==
[~2017-01-30] VITALS: Ht 175.3 cm; Wt 63.5 kg
[~2017-01-30 08:28] MED LIST changes: -CEFOXITIN 2GM IVPB FOR OMNI 100 ML IV PRN; -FENTANYL PF 100 MCG/2 ML VIAL. IV PRN; -HYDR-2666 PO; +HYDR-2758 PO; +HYDR15SO4 FT; -IV RINGERS,LACTATED 1000ML 1,000 ML IV SCH; -LIDOCAINE 1% 1 ML SYRINGE. ID PRN; -MORPHINE SULFATE 2 MG/ML DISP.SYRIN. IV PRN; -ONDANSETRON PF 4 MG/2 ML VIAL. IV PRN; +PNV1TABL25 PO
[2017-01-30 08:43] VITALS: BP 108/55
[2017-01-30 10:04] VITALS: BP 103/57
[2017-01-30 10:15] VITALS: BP 104/64
[2017-01-30] MEDS ORDERED: fentaNYL PF VIAL 250 MCG/5 ML VIAL IV ONE (10:15)
[2017-01-30] MEDS ORDERED: IOHEXOL 300 MG/ML 50 ML VIAL. IART ONE (10:15)
[2017-01-30] MEDS ORDERED: MIDAZOLAM HCL/PF 5 MG/5 ML VIAL. IV ONE (10:15)
[2017-01-30 10:30] VITALS: BP 101/54
[2017-01-30 10:45] VITALS: BP 95/46
[2017-01-30 11:00] VITALS: BP 92/50
--- NOTE | 2017-01-30 11:58 | RAD ---
Fluoroscopy guided jejunostomy tube replacement 01/30/2017 Procedure: Informed consent was obtained from the patient. She was placed supine on the angiography table. Right upper quadrant of abdomen was prepped and draped in the usual sterile fashion. Preexisting jejunostomy tube was confirmed fluoroscopically. A small amount of contrast was slowly injected through the pre-existing tube confirming proper placement in the jejunum. The pre-existing tube was removed over wire and replaced with a new 18 Amharic jejunostomy tube. The retention balloon was filled with 10 cc of sterile water. The tube was flushed. A sterile dressing was applied. Conscious sedation was performed including continuous cardiopulmonary monitoring via a dedicated sedation nurse. Sedation time approximately 20 minutes. Impression: Successful, uneventful fluoroscopy guided jejunostomy tube replacement, as described. FLUORO TIME: 0.7 MIN Dose area product: 1 Gycm2
== END 2017-01-30 11:00 | disposition home or self-care (01) ==
LOC: INTRAD 08:28
PROVIDERS: ATTEND Surgery
DX: K94.23 Gastrostomy malfunction (principal); K21.9 Gastro-esophageal reflux disease without esophagitis; Z72.0 Tobacco use; Z90.49 Acquired absence of other specified parts of digestive tract; Z88.6 Allergy status to analgesic agent; Z91.040 Latex allergy status
CPT/HCPCS: 49451; 99152; C1769; J2250; J3010; Q9967

== ENCOUNTER → 2017-03-20 | Day surgery (SDC) | payer BC ==
[~2017-03-20] MED LIST changes: +BUPIVAC MPF-EPI 0.5%-1:200000 30 ML VIAL. ONE; +DESFLURANE 31 TO 60 MINUTES IH ONE; +DEXAMETHASONE SOD PHOS 20 MG/5 ML VIAL. ONE; +FAMOTIDINE 20 MG/2 ML VIAL ONE; +GLYCOPYRROLATE 1 MG/5 ML VIAL. ONE; +IV RINGERS,LACTATED 1000ML 1,000 ML IV SCH; +LIDOCAINE 1% PF 2 ML VIAL. ID PRN; +LIDOCAINE 2% PF Vial for OR 5 ML VIAL. ONE; +MORPHINE SULFATE 2 MG/ML DISP.SYRIN. ONE; +MULT1TAB52 PO; +NEOSTIGMINE 10 MG/10 ML VIAL. ONE; +ONDANSETRON PF 4 MG/2 ML VIAL. IV PRN; +ONDANSETRON PF 4 MG/2 ML VIAL. ONE; +OXYC-323 PO; +PROCHLORPERAZINE 10 MG/2 ML VIAL. IV PRN; +PROM25TA10 PO; +PROPOFOL 20 ML IV ONE; +fentaNYL PF VIAL 100 MCG/2 ML VIAL IV PRN; +fentaNYL PF VIAL 100 MCG/2 ML VIAL ONE; +oxyCODONE/APAP 5/325 1 TAB TABLET PO PRN
[2017-03-20 10:40] LABS: NEG OBC UR NEG; POS OBC UR POS
--- NOTE | 2017-03-20 11:28 | PDOC ---
SURGICAL PROGRESS NOTE Subjective Pre-Op Note 26 yo F with recurrent non healing LUQ previous G-tube site intermittently develops seroma and drainage Site examined and wound small and not currently draining TO OR for excisional biopsy Office note H&P reviewed and unchanged R/B/A d/w pt and pt's . Risks, including, but not limited to: bleeding , infection, damage to surrounding structures, risk of anesthesia, risk of recurrence. They appear to understand, their questions are answered and they agree to proceed. Vital Signs Vital Signs Date Time Temp Pulse Resp B/P (MAP) Pulse Ox O2 Delivery O2 Flow Rate FiO2 03/20/17 10:35 97.3 53 18 115/64 100 Room Air 97.3 Labs Laboratory Tests Test 03/20/17 10:30 Urine Test Negative (NEG) Laboratory Tests Test 03/20/17 10:30 Urine Test Negative (NEG) GAIL BURT MD Mar 20, 2017 11:27
[2017-03-20] MEDS: fentaNYL PF VIAL 100 MCG/2 ML VIAL IV PRN ×4 (12:40→13:00)
[2017-03-20] MEDS: MORPHINE SULFATE 2 MG/ML DISP.SYRIN. IV PRN ×3 (13:24→13:56)
--- NOTE | 2017-03-20 13:25 | PDOC4 ---
OPERATIVE NOTE Date: Date: Mar 20, 2017 Pre-Op Diagnosis: Left upper abdominal wall recurrent seroma Post-Op Diagnosis: same Procedure Performed: After obtaining informed consent, patient was taken to the OR, induced under GETA and prepped and draped in the usual fashion. Site was identified in the left upper quadrant. Circumferential incision was made using cautery. This was carried down through the skin, subcutaneous tissue, and extended through abdominal wall musculature using cautery. Specimen was resected and sent to pathology. No involvement was noted involving intraabdominal viscera. Abdominal wall muscle closed with 2 layers 0 vicryl. Subcutaneous tissue approximated with 3 0 vicryl. Skin repaired with interrupted 4 0 monocryl. Dressing applied. Patient tolerated procedure well and sent to PACU in stable condition. All counts correct. No immediate complications. GAIL BURT MD Mar 20, 2017 13:25
[2017-03-20 14:40] VITALS: BP 105/46
--- NOTE | 2017-03-23 11:58 | PATHOLOGY ---
PATHOLOGY REPORT * * * * * * * * FINAL DIAGNOSIS: Segments of skin and subcutaneous tissue and gastric tissue, left upper quadrant: - Abscess with scarring and focal foreign body giant cell reaction. See comment. (JPM:kel; 03/23/2017) COMMENT: The microscopic section reveals an abscess with associated scarring and focal foreign body giant cell reaction. There is focal gastric tissue present consistent with a gastrostomy tube site. There is no evidence of malignancy. REPORT ELECTRONICALLY SIGNED BY: Aram Mondragon M.D. DATE/TIME: 03/23/2017 11:57 * * * * * * * * GROSS PATHOLOGY: The specimen is received in formalin, labeled "Maty Calderon and left upper quadrant abscess", are several ortiz white to yellow fibrous/adipose soft tissue, the aggregate measure 3.5 x 2.7 x 1.2 cm. The largest fragment partially covered by ortiz-white exudate. Hardwood Faller section in A1. (SWS; 03/21/2017) INITIAL CPT CODE(S): A; 37395 Professional services performed by [facility] [place] [address] Technical services performed by [facility] at [address] [place] [address]. SPECIMEN(S) RECEIVED: A.Left upper quadrant abscess CLINICAL HISTORY: Abdominal wall abscess at site of surgical wound PATIENT: MATY CALDERON /AGE: 106/06/1990 (Age: 26) PATIENT #: [id number] ALT CASE #: SPECIMEN COLLECTION DATE: 03/20/2017 SPECIMEN RECEIVED DATE: 03/20/2017 [facility] - [address] [place] [address] - PHONE: [phone] * * * END OF REPORT * * *
== END | disposition home or self-care (01) ==
LOC: SURG 09:53
PROVIDERS: ATTEND Surgery
DX: L76.34 Postprocedural seroma of skin and subcutaneous tissue following other procedure (principal); Y83.8 Other surgical procedures as the cause of abnormal reaction of the patient, or of later complication, without mention of misadventure at the time of the procedure; K21.9 Gastro-esophageal reflux disease without esophagitis; Z72.0 Tobacco use; Z90.49 Acquired absence of other specified parts of digestive tract; Z88.8 Allergy status to other drugs, medicaments and biological substances; Z91.040 Latex allergy status
CPT/HCPCS: 22900; 81025; 88304; J0690; J0780; J1100; J2270; J2405; J2704; J2710; J3010; J3490; S0028; J2001